=== PATIENT | female | born 1945 | race Caucasian/White ===

== ENCOUNTER → 2018-04-09 10:52 | Outpatient (CLI) | payer MEDICARE, OTHER, SELFPAY ==
[2018-04-09 12:38] LABS: Uric Acid 6.3 mg/dL (2.5-6.2)
== END ==
PROVIDERS: Visit Provider Podiatrist
DX: R52 Pain, unspecified (principal)
CPT/HCPCS: 36415; 84550

== ENCOUNTER 2019-09-07 12:51 | Emergency (ER) | payer MEDICARE, OTHER, SELFPAY ==
[2019-09-07 13:10] VITALS: BP 145/83; PULSE 90; RESP 18; TEMP 36.7; O2SAT 95; BMI 39.8
--- NOTE | 2019-09-07 13:13 | DI.RAD.S_ITS ---
PROCEDURE: XR FOREARM RT 2V INDICATIONS: trip and fall, lt. forearm pain, TECHNIQUE: 2 views of the forearm were acquired. COMPARISON: None. FINDINGS: Bones: Comminuted fracture of the distal radius which extends the radiocarpal joint. Soft tissues: No suspicious soft tissue calcifications or masses. IMPRESSION: Comminuted, intra-articular distal radius fracture. Dictated by: Rachel Shaw MD, PhD on 09/07/2019 at 12:28 Approved by: Rachel Shaw MD, PhD on 09/07/2019 at 12:32
[2019-09-07] MEDS: ACETAMINOPHEN 325 MG TABLET 975 MG PO (13:16)
[2019-09-07] MEDS: IBUPROFEN 400 MG TABLET 800 MG PO (13:17)
--- NOTE | 2019-09-07 16:11 | ED_ITS ---
HPI - Extremity Injury (Upper) General Chief Complaint: Extremity Injury, Upper Stated Complaint: right forearm fall today Time Seen by Provider: 09/07/19 15:56 Source: patient Mode of arrival: Ambulatory Limitations: no limitations History of Present Illness HPI narrative: 74-year-old [id number] female here for evaluation of injury sustained to her left wrist. States she slipped fell on her deck landing on her wrist. Has had pain and swelling since then. Happened earlier today. No other injury port from the event. No shoulder or elbow pain. No prior injury to the left wrist. Related Data Home Medications Medication Instructions Recorded Confirmed allopurinol 300 mg PO DAILY 09/07/19 09/07/19 amlodipine 5 mg PO DAILY 09/07/19 09/07/19 anastrozole 1 mg PO DAILY 09/07/19 09/07/19 bupropion HCl [Wellbutrin XL] 300 mg PO DAILY 09/07/19 09/07/19 dexmethylphenidate [Focalin XR] 10 mg PO DAILY 09/07/19 09/07/19 escitalopram oxalate [Lexapro] 10 mg PO DAILY 09/07/19 09/07/19 levothyroxine [Synthroid] 75 mcg PO DAILY 09/07/19 09/07/19 liothyronine [Cytomel] 12.5 mcg PO DAILY 09/07/19 09/07/19 olmesartan [Benicar] 40 mg PO DAILY 09/07/19 09/07/19 triamterene-hydrochlorothiazid 1 cap PO DAILY 09/07/19 09/07/19 Previous Rx's Medication Instructions Recorded hydrocodone-acetaminophen [[place]] 1 tab PO Q4-6H PRN #10 tab 09/07/19 Allergies Allergy/AdvReac Type Severity Reaction Status Date / Time adhesive tape AdvReac Intermediate Rash Verified 09/07/19 13:13 Review of Systems Constitutional Constitutional: Denies fever(s) Cardiovascular Cardiovascular: Denies chest pain and Denies dyspnea Respiratory Respiratory: Denies dyspnea Gastrointestinal Gastrointestinal: Denies abdominal pain Musculoskeletal Comments: Left wrist pain Integumentary/Breasts Skin/Breast: Denies lesions and Denies rash Neurologic Neurologic: Denies behavioral changes Psychiatric Psychiatric: Denies behavioral changes Hematologic/Lymphatic Hematologic/Lymphatic: Denies easy bleeding and Denies easy bruising Patient History Medical History Hypertension (Acute) Hypothyroid (Acute) Social History Smoking Status: Never smoker Social History Smoking Status: Never smoker alcohol intake frequency: 0-2 drinks per day Substance Use Type: does not use Exam Initial Vital Signs Initial Vital Signs: Vital Signs Temperature 98.0 F 09/07/19 13:10 Pulse Rate 90 09/07/19 13:10 Respiratory Rate 18 09/07/19 13:10 Blood Pressure 145/83 H 09/07/19 13:10 Pulse Oximetry 95 09/07/19 13:10 Const General: cooperative, healthy appearing and comfortable HENMT Head: normal to inspection and normocephalic Cardio Pulses: radial pulses present on the left Skin Lesions: no lesions Rashes: no rashes Neuro General: alert and awake Speech: speech normal Motor: muscle tone normal throughout Sensory Exam: no sensory deficits noted Extrem General: normal to inspection and capillary refill normal Other: Left shoulder unremarkable, left elbow unremarkable, patient able to pronate without problems however does have some difficulty supination. She is able to somewhat flex and extend the wrist over some discomfort. Left hand unremarkable. Low thumbs unremarkable. No snuffbox tenderness. Psych Appearance: grossly normal and well kempt Procedures Orthopedic Splinting/Casting Injury #1: Side: left Upper Extremity Injury Location: wrist Upper Extremity Immobilizer: sugar tong splint Other Orthopedic Equipment: other (Sling) Post splinting neuro exam: intact Post splinting vascular exam: intact Placed by: Provider Course Orders Ordered: ED Orders 09/07/19 13:13 XR forearm LT 2V Stat Discontinued Medications Acetaminophen (Tylenol) 975 mg PO NOW ONE Stop: 09/07/19 13:14 Last Admin: 09/07/19 13:16 Dose: 975 mg Documented by: JOANA Ibuprofen (Advil) 800 mg PO NOW ONE Stop: 09/07/19 13:14 Last Admin: 09/07/19 13:17 Dose: 800 mg Documented by: JOANA Morphine Sulfate (Morphine) 4 mg IV NOW ONE Stop: 09/07/19 16:12 Last Admin: 09/07/19 16:45 Dose: 4 mg Documented by: CARMITA Vital Signs Vital signs: Vital Signs - 8 hr 09/07/19 13:10 09/07/19 17:11 Temperature 98.0 F Pulse Rate 90 88 Respiratory Rate 18 18 Blood Pressure 145/83 H Blood Pressure [Left Arm] 142/78 H Pulse Oximetry 95 98 [facility] - Extremity Injury (Upper) Imaging Data Wrist x-ray: Radiologist's impression: [address] [address] XRay Report Signed Patient: Chantelle Rivera [facility]#: [id number] : 7Acct:[id number] Age/Sex: 74 / FDate of Service: 09/07/19 Loc: ED Accession Number: [id number] Procedure: XR forearm LT 2V Ordering Provider: River Valdez D.O. PROCEDURE: XR FOREARM RT 2V INDICATIONS: trip and fall, lt. forearm pain, TECHNIQUE: 2 views of the forearm were acquired. COMPARISON: None. FINDINGS: Bones: Comminuted fracture of the distal radius which extends the radiocarpal joint. Soft tissues: No suspicious soft tissue calcifications or masses. IMPRESSION: Comminuted, intra-articular distal radius fracture. Dictated by: Rachel Shaw MD, PhD on 09/07/2019 at 12:28 Approved by: Rachel Shaw MD, PhD on 09/07/2019 at 12:32 [facility] Narrative Medical decision making narrative: Patient is neurovascular intact. Does have a comminuted distal radius fracture. She has surprisingly minimal tenderness with palpation of the distal radius. She has no thumb tenderness. She has no proximal forearm tenderness. Elbows unremarkable shoulders unremarkable. She was placed in a sugar-tong splint. She was neurovascularly intact afterwards. We did discuss return precautions and follow-up instructions we did discuss care instructions for splint. She was given the phone number for the orthopedic department in the area. She does have an established relationship with the orthopedic provider already. Discharge Plan Departure Patient Disposition: Home Clinical Impression: Distal radius fracture, left Qualifiers: Encounter type: initial encounter Fracture type: closed Fracture morphology: unspecified fracture morphology Qualified Code(s): S52.502A - Unspecified fracture of the lower end of left radius, initial encounter for closed fracture Discharge Date/Time: 09/07/19 17:14 Instructions: How to Take Care of Your Splint, DI for Distal Radius Fracture Activity Restrictions/Additional Instructions: Tomorrow contact your primary provider and also the [facility] at [phone]. Take the medications as directed. Return to the emergency department for any new or worsening symptoms Prescriptions: New hydrocodone-acetaminophen [[place]] 5-325 mg tablet 1 tab PO Q4-6H PRN (Reason: pain) Qty: 10 RF: 0 No Action anastrozole 1 mg tablet 1 mg PO DAILY RF: 0 liothyronine [Cytomel] 25 mcg tablet 12.5 mcg PO DAILY RF: 0 amlodipine 5 mg tablet 5 mg PO DAILY RF: 0 triamterene-hydrochlorothiazid 37.5-25 mg capsule 1 cap PO DAILY RF: 0 levothyroxine [Synthroid] 75 mcg tablet 75 mcg PO DAILY RF: 0 allopurinol 300 mg tablet 300 mg PO DAILY RF: 0 olmesartan [Benicar] 40 mg tablet 40 mg PO DAILY RF: 0 escitalopram oxalate [Lexapro] 10 mg tablet 10 mg PO DAILY RF: 0 bupropion HCl [Wellbutrin XL] 300 mg tablet extended release 24 hr 300 mg PO DAILY RF: 0 dexmethylphenidate [Focalin XR] 10 mg capsule,ER biphasic 50-50 10 mg PO DAILY RF: 0 Referrals: Yogi Castanon MD [Primary Care Provider] -
[2019-09-07] MEDS: MORPHINE 4 MG/ML INJ IV (16:45)
[2019-09-07 17:11] VITALS: BP 142/78; PULSE 88; RESP 18; O2SAT 98
== END 2019-09-07 17:14 | disposition home or self-care (01) ==
PROVIDERS: Emergency Provider Emergency Medicine; PCP Internal Medicine
DX: S52.502A Unspecified fracture of the lower end of left radius, initial encounter for closed fracture (principal); W01.0XXA Fall on same level from slipping, tripping and stumbling without subsequent striking against object, initial encounter
CPT/HCPCS: 29105; 36415; 73090; 96374; 99282; 99284; J2270

== ENCOUNTER 2021-07-02 13:27 | Emergency (ER) | payer MEDICARE, OTHER, SELFPAY ==
[2021-07-02 14:03] VITALS: BP 148/71; PULSE 86; RESP 20; TEMP 36.9; O2SAT 97
--- NOTE | 2021-07-02 14:11 | DI.RAD.S_ITS ---
PROCEDURE: XR FINGER LT MIN 2V INDICATIONS: fall TECHNIQUE: AP hand, 2 views of the left 1st finger(s) acquired. COMPARISON: None. FINDINGS: Bones: Mildly displaced fracture of the left 1st proximal phalange. Fracture extends into the 1st MCP joint.. Soft tissues: No suspicious soft tissue calcifications. IMPRESSION: Mildly displaced, intra-articular left 1st proximal phalange fracture. Dictated by: Rachel Shaw MD, PhD on 07/02/2021 at 15:10 Approved by: Rachel Shaw MD, PhD on 07/02/2021 at 15:11
--- NOTE | 2021-07-02 14:11 | DI.RAD.S_ITS ---
PROCEDURE: XR WRIST RT MIN 3V INDICATIONS: fall TECHNIQUE: 4 views of the wrist were acquired. COMPARISON: None. FINDINGS: Bones: No fractures or dislocations. No suspicious bony lesions. Severe triscaphe joint osteoarthritis. Mild 1st CMC joint osteoarthritis. Scaphoid view: Scaphoid is intact. Soft tissues: No suspicious soft tissue calcifications. IMPRESSION: No fracture. No acute osseous lesion. If symptoms and/or clinical suspicion for pathology persists, further assessment with repeat radiographs (7-10 days) or advanced imaging (e.g. CT, MRI or bone scan) should be considered. Dictated by: Rachel Shaw MD, PhD on 07/02/2021 at 15:09 Approved by: Rachel Shaw MD, PhD on 07/02/2021 at 15:10
[2021-07-02] MEDS: IBUPROFEN 400 MG TABLET PO (15:00)
[2021-07-02] MEDS: ACETAMINOPHEN 325 MG TABLET 975 MG PO (15:00)
[2021-07-02 16:14] VITALS: BP 100/81; PULSE 84; TEMP 36.4; O2SAT 95
[2021-07-02] MEDS: TET,DIPH,PERTUSS(ACELL),VAC/PF 0.5 ML SYRINGE IM (16:49)
[2021-07-02] MEDS: OXYCODONE IR 5 MG TABLET PO (16:49)
--- NOTE | 2021-07-02 18:44 | ED.UPPEXIN ---
HPI - Extremity Injury (Upper) <Aubrie Stanley, LABOR LAW PROFESSOR-BC - Last Filed: 07/02/21 18:55> General Chief Complaint: Extremity Injury, Upper Stated Complaint: Fell/ hurt thumb and wrist Time Seen by Provider: 07/02/21 16:11 Source: patient Mode of arrival: Ambulatory Limitations: no limitations History of Present Illness HPI narrative: the patient is 76-year-old female nonsmoker with history of gout who presents with her for chief complaint of a ground level fall. She tripped and had a mechanical fall the [facility]. She presents with a chief complaint of left thumb pain, right forearm pain, and abrasion on her right knee. She does not know when her last tetanus was. She is right-hand dominant. She iced her thumb for 2 hours prior to arrival to the emergency department today. She has not taken anything for pain. she did not hit her head, she denies any neck or back pain, she essentially had a FOOSH extremity of both upper extremities. She does not take blood thinners. Related Data Home Medications Medication Instructions Recorded Confirmed allopurinol 300 mg tablet 300 mg PO #0 03/02/17 amlodipine 5 mg tablet (Norvasc) 5 mg PO QDAY #0 03/02/17 allopurinol 300 mg tablet 300 mg PO DAILY 09/07/19 09/07/19 amlodipine 5 mg tablet 5 mg PO DAILY 09/07/19 09/07/19 anastrozole 1 mg tablet 1 mg PO DAILY 09/07/19 09/07/19 bupropion HCl 300 mg 24 hr tablet, 300 mg PO DAILY 09/07/19 09/07/19 extended release (Wellbutrin XL) dexmethylphenidate 10 mg 10 mg PO DAILY 09/07/19 09/07/19 capsule,extended release [id number] (Focalin XR) escitalopram oxalate 10 mg tablet 10 mg PO DAILY 09/07/19 09/07/19 (Lexapro) levothyroxine 75 mcg tablet 75 mcg PO DAILY 09/07/19 09/07/19 (Synthroid) liothyronine 25 mcg tablet 12.5 mcg PO DAILY 09/07/19 09/07/19 (Cytomel) olmesartan 40 mg tablet (Benicar) 40 mg PO DAILY 09/07/19 09/07/19 triamterene 37.5 1 cap PO DAILY 09/07/19 09/07/19 mg-hydrochlorothiazide 25 mg capsule Previous Rx's Medication Instructions Recorded levofloxacin 750 mg tablet 750 mg PO QDAY 7 Days #0 tab 03/02/17 (Levaquin) hydrocodone 5 mg-acetaminophen 325 1 tab PO Q4-6H PRN #10 tab 09/07/19 mg tablet ([place]) hydrocodone 5 mg-acetaminophen 325 1 tab PO Q4-6H PRN #14 tab 07/02/21 mg tablet Allergies Allergy/AdvReac Type Severity Reaction Status Date / Time adhesive tape AdvReac Intermediate Rash Verified 09/09/19 10:33 Review of Systems <BHUMI Gann - Last Filed: 07/02/21 18:55> Review of Systems Narrative: GENERAL: Denies chills, fatigue, malaise, fever, sweats. HEENT: Denies sinus pain, ear pain, sore throat, difficulty swallowing, dizziness. RESPIRATORY: Denies dyspnea, cough, wheezing, hemoptysis, sputum. CARDIOVASCULAR: Denies chest pain, palpitations, orthopnea, edema, GASTROINTESTINAL: Denies nausea, vomiting, abdominal pain, diarrhea, constipation, melena. : Denies dysuria, frequency, incontinence, hematuria, urinary retention. MUSCULOSKELETAL: denies weakness, joint pain, or bony pain SKIN: Denies rash, skin lesions, or other NEUROLOGIC: Denies weakness, headache, numbness, change in speech, confusion, seizures, incoordination. PSYCHIATRIC: No concerning psychosocial issues. 12 point review of systems is negative except for those stated above Patient History <BHUMI Gann - Last Filed: 07/02/21 18:55> Medical History Hypertension Hypothyroid Social History (System 09/09/19 @ 10:33 by Manda Hill) Smoking Status: Never smoker Smoking Status: Never smoker alcohol intake frequency: 0-2 drinks per day Substance Use Type: does not use Exam <BHUMI Gann - Last Filed: 07/02/21 18:55> Narrative Exam Narrative: GENERAL: This is a well-nourished, well-developed patient, in No acute distress HEAD: Atraumatic. Normocephalic. No temporal or scalp tenderness. EYES: Pupils equal round and reactive. Extraocular motions intact. No scleral icterus. No injection or drainage. ENT: Nose without bleeding, purulent drainage or septal hematoma. wearing a mask Airway patent. NECK: Trachea midline. No JVD or lymphadenopathy. Supple, nontender, no meningeal signs. CARDIOVASCULAR: Regular rate and rhythm RESPIRATORY: Clear to auscultation. Breath sounds equal bilaterally. No wheezes, rales, or rhonchi. no cough. No increased respiratory effort no accessory muscle use. EXTREMITIES: No clubbing, cyanosis, or edema. No joint tenderness, effusion, or edema noted. BACK: decreased range of motion noted left thumb, no pain to left wrist in flexion or extension, no pain to snuffboxPalpation left wrist, diffuse pain to palpation right forearm, able to fully flex and extend right wrist, no pain to right snuffbox palpation, capillary less than cap refill less than 2 seconds all fingers NEURO: AOx3. SKIN: 5 cm abrasion noted right knee, ecchymosis noted left thumb Initial Vital Signs Initial Vital Signs: Vital Signs Temperature 98.4 F 07/02/21 14:03 Pulse Rate 86 07/02/21 14:03 Respiratory Rate 20 07/02/21 14:03 Blood Pressure 148/71 H 07/02/21 14:03 Pulse Oximetry 97 07/02/21 14:03 <River Valdez DO - Last Filed: 07/02/21 19:24> Initial Vital Signs Initial Vital Signs: Vital Signs Temperature 98.4 F 07/02/21 14:03 Pulse Rate 86 07/02/21 14:03 Respiratory Rate 20 07/02/21 14:03 Blood Pressure 148/71 H 07/02/21 14:03 Pulse Oximetry 97 07/02/21 14:03 Procedures <BHUMI Gann - Last Filed: 07/02/21 18:55> Orthopedic Splinting/Casting Injury #1: Side: left Upper Extremity Injury Location: finger Upper Extremity Immobilizer: thumb spica Post splinting neuro exam: intact Post splinting vascular exam: intact Placed by: Nursing Injury #2: Side: right Upper Extremity Injury Location: forearm Upper Extremity Immobilizer: Daniele wrap Post splinting neuro exam: intact Post splinting vascular exam: intact Placed by: Nursing Scores <BHUMI Gann - Last Filed: 07/02/21 18:55> GCS [place] coma scale eye opening: Spontaneous [place] coma scale verbal response: Orientated [place] coma scale motor response: Obey commands Jose coma scale total score: 15 <River Valdez DO - Last Filed: 07/02/21 19:24> GCS [place] coma scale total score: 15 Course <BHUMI Gann - Last Filed: 07/02/21 18:55> Orders Ordered: ED Orders 07/02/21 14:11 XR finger LT min 2V Stat XR wrist RT min 3V Stat Discontinued Medications Acetaminophen (Acetaminophen 325 Mg Tablet) 975 mg PO NOW ONE Stop: 07/02/21 14:06 Last Admin: 07/02/21 15:00 Dose: 975 mg Documented by: HECTOR Hydrocodone Bitart/Acetaminophen (Hydrocodone/Acet 5/325 Tablet) 1 tab PO NOW ONE Stop: 07/02/21 16:26 Diphtheria/Tetanus/Acell Pertussis (Tet,Diph,Pertuss(Acell),Vac/Pf 0.5 Ml Syringe) 0.5 ml IM .ONCE ONE Stop: 07/02/21 16:31 Last Admin: 07/02/21 16:49 Dose: 0.5 ml Documented by: JAMES Ibuprofen (Ibuprofen 400 Mg Tablet) 400 mg PO NOW ONE Stop: 07/02/21 14:07 Last Admin: 07/02/21 15:00 Dose: 400 mg Documented by: HECTOR Oxycodone HCl (Oxycodone Ir 5 Mg Tablet) 5 mg PO NOW ONE Stop: 07/02/21 16:40 Last Admin: 07/02/21 16:49 Dose: 5 mg Documented by: JAMES Vital Signs Vital signs: Vital Signs - 8 hr 07/02/21 14:03 07/02/21 16:14 Temperature 98.4 F 97.6 F Pulse Rate 86 84 Respiratory Rate 20 Blood Pressure 148/71 H 100/81 Pulse Oximetry 97 95 <River Valdez DO - Last Filed: 07/02/21 19:24> Orders Ordered: ED Orders 07/02/21 14:11 XR finger LT min 2V Stat XR wrist RT min 3V Stat Discontinued Medications Acetaminophen (Acetaminophen 325 Mg Tablet) 975 mg PO NOW ONE Stop: 07/02/21 14:06 Last Admin: 07/02/21 15:00 Dose: 975 mg Documented by: HECTOR Hydrocodone Bitart/Acetaminophen (Hydrocodone/Acet 5/325 Tablet) 1 tab PO NOW ONE Stop: 07/02/21 16:26 Diphtheria/Tetanus/Acell Pertussis (Tet,Diph,Pertuss(Acell),Vac/Pf 0.5 Ml Syringe) 0.5 ml IM .ONCE ONE Stop: 07/02/21 16:31 Last Admin: 07/02/21 16:49 Dose: 0.5 ml Documented by: JAMES Ibuprofen (Ibuprofen 400 Mg Tablet) 400 mg PO NOW ONE Stop: 07/02/21 14:07 Last Admin: 07/02/21 15:00 Dose: 400 mg Documented by: HECTOR Oxycodone HCl (Oxycodone Ir 5 Mg Tablet) 5 mg PO NOW ONE Stop: 07/02/21 16:40 Last Admin: 07/02/21 16:49 Dose: 5 mg Documented by: JAMES Vital Signs Vital signs: Vital Signs - 8 hr 07/02/21 14:03 07/02/21 16:14 Temperature 98.4 F 97.6 F Pulse Rate 86 84 Respiratory Rate 20 Blood Pressure 148/71 H 100/81 Pulse Oximetry 97 95 MDM - Extremity Injury (Upper) <BHUMI Gann - Last Filed: 07/02/21 18:55> Imaging Data Extremity x-ray #1: Radiologist's Impression: [address] [place] [id number] ReportSigned Patient: Chantelle Rivera [facility]#: [id number]: 7Acct:[id number]/Sex: 76 / FDate of Service: 07/02/21Loc: EDAccession Number: [id number] Procedure: XR wrist RT min 3V Ordering Provider: River Valdez D.O. PROCEDURE: XR WRIST RT MIN 3V INDICATIONS: fall TECHNIQUE: 4 views of the wrist were acquired. COMPARISON: None. FINDINGS: Bones: No fractures or dislocations. No suspicious bony lesions. Severe triscaphe joint osteoarthritis. Mild 1st CMC joint osteoarthritis. Scaphoid view: Scaphoid is intact. Soft tissues: No suspicious soft tissue calcifications. IMPRESSION: No fracture. No acute osseous lesion. If symptoms and/or clinical suspicion for pathology persists, further assessment with repeat radiographs (7-10 days) or advanced imaging (e.g. CT, MRI or bone scan) should be considered. Dictated by: Rachel Shaw MD, PhD on 07/02/2021 at 15:09 Approved by: Rachel Shaw MD, PhD on 07/02/2021 at 15:10 Extremity x-ray #2: Radiologist's Impression: [address] [place] [id number] ReportSigned Patient: Chantelle Rivera [facility]#: [id number]: 7Acct:[id number]/Sex: 76 / FDate of Service: 07/02/21Loc: EDAccession Number: [id number] Procedure: XR finger LT min 2V Ordering Provider: River Valdez D.O. PROCEDURE: XR FINGER LT MIN 2V INDICATIONS: fall TECHNIQUE: AP hand, 2 views of the left 1st finger(s) acquired. COMPARISON: None. FINDINGS: Bones: Mildly displaced fracture of the left 1st proximal phalange. Fracture extends into the 1st MCP joint.. Soft tissues: No suspicious soft tissue calcifications. IMPRESSION: Mildly displaced, intra-articular left 1st proximal phalange fracture. Dictated by: Rachel Shaw MD, PhD on 07/02/2021 at 15:10 Approved by: Rachel Shaw MD, PhD on 07/02/2021 at 15:11 [facility] Narrative Medical decision making narrative: the patient is a 76-year-old female who presents after a ground level fall earlier today. Given the abrasion, or tetanus is updated, though she is weight-bearing easily on her right leg reducing concern of fracture. X-rays reviewed with Dr Valdez and noted to have left thumb fracture, placed in thumb spica according to his instructions. Negative right forearm x-ray with no snuffbox tenderness to palpation. Discussed at length rest ice compression elevation as well as pain medication as needed and able. [place] prescription given. Discussed at length come back to the ER for acute concerns such as decreased circulation to. Patient did not hit her head, denies any neck or back pain, has no C-spine tenderness to palpation. No questions or concerns upon discharge states understanding of return precautions as well as follow-up care. Patient has been hemodynamically stable throughout her stay in the ER. Discharge Plan Departure Patient Disposition: Home Clinical Impression: Abrasion, Fall from ground level, Acute pain of right wrist Fracture of thumb Qualifiers: Encounter type: initial encounter Fracture type: closed Phalanx: proximal Fracture alignment: displaced Laterality: left Qualified Code(s): S62.512A - Displaced fracture of proximal phalanx of left thumb, initial encounter for closed fracture Instructions: DI for Finger Fracture, DI for a Hand Fracture, How To Perform RICE (Rest, Ice, Compress, Elevate), How to Take Care of Your Splint, DI for Arm Pain Activity Restrictions/Additional Instructions: Thank you for trusting us with your care today. As discussed, you unfortunately broke your left thumb. However the x-rays of your right wrist have no acute findings. Please use rest ice compression elevation. Please follow-up with primary care provider as well as [facility]. Please come back to the emergency department for any acute concerns such as decreased circulation to her thumb. I did send a prescription of pain medicine to [facility]. You have been prescribed narcotic medications. While on these medications you cannot drive or operate heavy machinery. Additionally you cannot sign legal documents or perform any duties such as this. Many people get constipated on narcotic medications so it would be advisable to discuss stool softeners with the pharmacist when you pickle cutter your prescription. Please understand that we cannot provide further refills of narcotics or controlled substances through the ED and your pain management will need to be through your Primary Care Provider given your abrasion, I did update your tetanus today. Prescriptions: New hydrocodone-acetaminophen 5-325 mg tablet 1 tab PO Q4-6H PRN (Reason: pain) Qty: 14 RF: 0 No Action amlodipine [Norvasc] 5 MG tablet 5 mg PO QDAY Qty: 0 RF: 0 allopurinol 300 MG tablet 300 mg PO Qty: 0 RF: 0 levofloxacin [Levaquin] 750 MG tablet 750 mg PO QDAY 7 Days Qty: 0 RF: 0 anastrozole 1 mg tablet 1 mg PO DAILY RF: 0 liothyronine [Cytomel] 25 mcg tablet 12.5 mcg PO DAILY RF: 0 amlodipine 5 mg tablet 5 mg PO DAILY RF: 0 triamterene-hydrochlorothiazid 37.5-25 mg capsule 1 cap PO DAILY RF: 0 levothyroxine [Synthroid] 75 mcg tablet 75 mcg PO DAILY RF: 0 allopurinol 300 mg tablet 300 mg PO DAILY RF: 0 olmesartan [Benicar] 40 mg tablet 40 mg PO DAILY RF: 0 escitalopram oxalate [Lexapro] 10 mg tablet 10 mg PO DAILY RF: 0 bupropion HCl [Wellbutrin XL] 300 mg tablet extended release 24 hr 300 mg PO DAILY RF: 0 dexmethylphenidate [Focalin XR] 10 mg capsule,ER biphasic 50-50 10 mg PO DAILY RF: 0 hydrocodone-acetaminophen [[place]] 5-325 mg tablet 1 tab PO Q4-6H PRN (Reason: pain) Qty: 10 RF: 0 Referrals: [facility] [Provider Group] [facility] [Outside] Yogi Castanon MD [Primary Care Provider] - <River Valdez DO - Last Filed: 07/02/21 19:24> Cosign [facility]ending [facility]: Dr Valdez Co-Sign Statement: I was available for consultation during this patient's emergency department visit. This chart is signed by myself for administrative purposes only. I did not have direct contact with this patient during this visit. They were seen independently by the APC.
== END 2021-07-02 18:20 | disposition home or self-care (01) ==
PROVIDERS: Emergency Provider Nurse Practitioner Family; PCP Internal Medicine
DX: S62.512A Displaced fracture of proximal phalanx of left thumb, initial encounter for closed fracture (principal); S80.211A Abrasion, right knee, initial encounter; M79.631 Pain in right forearm; M25.531 Pain in right wrist; W19.XXXA Unspecified fall, initial encounter; Z23 Encounter for immunization
CPT/HCPCS: 73110; 73140; 90471; 99283; 99284; 90715

== ENCOUNTER → 2022-07-08 10:47 | Outpatient (CLI) | payer MEDICARE, OTHER, SELFPAY | PROVIDERS: PCP Internal Medicine; Referring Provider Internal Medicine Hematology & Oncology; Visit Provider Internal Medicine Hematology & Oncology | DX: M81.0 Age-related osteoporosis without current pathological fracture (principal); Z13.820 Encounter for screening for osteoporosis; Z78.0 Asymptomatic menopausal state | CPT/HCPCS: 77080 ==